=== PATIENT | female | born 1985 | race Caucasian/White ===

== ENCOUNTER 2020-08-10 21:22 | Emergency (ER) | payer SELFPAY ==
--- NOTE | 2020-08-10 21:24 | XRR_ITS ---
PROCEDURE INFORMATION: Exam: XR Right Hip Exam date and time: 08/10/2020 9:33 PM Age: 34 years old Clinical indication: Injury or trauma; Fall; Blunt trauma (contusions or hematomas); Right; Hip; Injury details: One month ago; Additional info: Fall from horse TECHNIQUE: Imaging protocol: XR Right hip. Views: 1 view hip with pelvis when performed. Total images: 2 COMPARISON: No relevant prior studies available. FINDINGS: Bones/joints: Unremarkable. No acute fracture. Soft tissues: Unremarkable. XR/XR hip RT 2-3V wo/w pel* [id number] IMPRESSION: No acute findings.
[2020-08-10 21:31] VITALS: BP 146/80; PULSE 80; RESP 17; TEMP 36.7; O2SAT 100; BMI 29.8
[2020-08-10 23:13] VITALS: BP 132/82; PULSE 79; RESP 18; O2SAT 97
[2020-08-10] MEDS: predniSONE 20 mg Tablet 40 MG PO (23:17)
[2020-08-10] MEDS: cyclobenzaprine 10 mg Tablet PO (23:17)
--- NOTE | 2020-08-10 23:22 | W.ED.EXTPRO ---
HPI - Extremity Problem General: Chief complaint: Extremity Injury, Lower Stated complaint: R HIP PAIN/THROWN FROM HORSE X 1MO,NOT IMPROVING Time Seen by Provider: 08/10/20 21:24 Source: patient Mode of arrival: ambulatory Limitations: no limitations History of Present Illness: HPI Narrative: 34 yo female patient presents to ER states she fell off horse about a month ago and hs had hip pain ever since. Pt states last few weeks she has developed this burning pain down the back of her leg. Pt denies any lumbar pain pt denies any abd pain, deneis fever, denies loss of bowel or bladder denies any history of IV drug use. Pt denies any urinary symptoms Associated symptoms: Deny chest pain, fever(s) or rash Review of Systems Const: Denies: fever(s), chills, body aches, change in appetite, change in weight, fatigue, malaise or diaphoresis Eyes: Denies: change in vision, blurry vision, blind spots, photophobia, eye discomfort, eye discharge, eye redness, floaters or seeing flashes ENMT: Denies: throat pain, uvular edema, enlarged tonsils, odynophagia, hoarseness, mouth pain, swelling of lips/tongue, oral sores, bleeding gums, dental pain, dry mouth, ear or mastoid pain, ear discharge, change in hearing, tinnitus, disequilibrium, nasal discharge, nasal congestion, post nasal drip or sinus pain Card: Denies: chest pain, palpitations, irregular heart rhythm, edema, swelling of feet/ankles, lightheadedness, syncope, pre-syncope, dyspnea on exertion, orthopnea, leg pain with exertion or acrocyanosis Resp: Denies: dyspnea, productive cough, non-productive cough, wheezing, stridor, pain on inspiration, change in phlegm color, hemoptysis or chest congestion GI: Denies: abdominal pain, nausea, vomiting, hematemesis, dysphagia, diarrhea, constipation, GI cramping, change in bowel habits or rectal pain : Denies: flank pain, difficulty voiding, dysuria, urinary frequency, urinary urgency, urinary hesitancy or hematuria Musc: Reports: joint pain; Denies: neck pain, back pain, extremity pain, extremity swelling, joint swelling, joint redness, joint warmth or deformity Skin/Breast: Denies: rash, pruritus, erythema, sores, new lesions, changes in skin color or dry skin Neuro: Denies: headache(s), numbness in extremities, weakness in extremities, sensory changes, lack of coordination, difficulty walking, frequent falls, dizziness, vertigo, confusion, behavioral changes, Slurred speech present, difficulty communicating thoughts or seizure-like activity Psych: Denies: anxiety, depression, suicidal ideation or homicidal ideation Endo: Denies: polyuria, polydipsia, tired all the time, cold intolerance, excessive sweating, flushing, hot flashes or heat intolerance Boris/Lymph: Denies: easy bruising, easy bleeding, petechiae, purpura, enlarged lymph nodes or tender lymph nodes All/Imm: Denies: urticaria, throat swelling, tongue swelling, facial swelling, acute wheezing or itchy eyes Physical Exam HENMT: THROAT: no uvular edema Neck/C-Spine: COMMON NORMALS: no JVD Chest: COMMONS NORMALS: normal inspection of the chest, normal palpation of entire chest wall, normal inspection of the breasts and normal palpation of the breasts Breast/axilla inspection: Yes normal inspection of the breasts BREAST/AXILLA PALPATION: Yes normal palpation of the breasts Resp: COMMON NORMALS: normal respiratory effort, No retractions, No use of accessory muscles, clear to auscultation bilaterally and percussion normal AUSCULTATION: clear to auscultation bilaterally PERCUSSION: percussion normal Cardio: COMMON NORMALS: no JVD, regular rate, regular rhythm, S1 normal heart sound present, S2 normal heart sound present, No gallops present (Cardio), No clicks present (Cardio), No murmurs present (Cardio), No rub (Cardio) and Peripheral pulses 2+ throughout RATE: regular rate RHYTHM: regular rhythm HEART SOUNDS: S1 normal heart sound present and S2 normal heart sound present PERIPHERAL PULSES: Peripheral pulses 2+ throughout GI: COMMON NORMALS: Normal to inspection, nondistended, normoactive bowel sounds present, Soft to palpation, non-tender, No hepatosplenomegaly present, no masses and no bruits PALPATION: Yes Soft to palpation and Yes No hepatosplenomegaly present : COMMON NORMALS: Yes no CVA tenderness BLADDER/KIDNEY EXAM: Yes no CVA tenderness Back/Pelvis: COMMON NORMALS: no CVA tenderness, thoracic and lumbar spine normal to inspection, no thoracic nor lumbar tenderness, thoraco-lumbar ROM normal and straight leg raise negative bilaterally THORACIC SPINE/UPPER BACK: Yes normal to inspection and Yes thoracic ROM normal LUMBAR SPINE/LOWER BACK: Yes normal to inspection and Yes paraspinal muscle tenderness PELVIS: Yes buttocks normal, Yes no pain with anterior-posterior compression, Yes no pain with lateral compression, No tenderness over symphysis pubis, Yes sciatic notch tenderness and No iliac crest elevation SACROILIAC JOINTS: Yes SI joints normal Course Vital Signs: Vital signs: Vital Signs Temperature 98.1 F 08/10/20 21:31 Pulse Rate 79 08/10/20 23:13 Respiratory Rate 18 08/10/20 23:13 Blood Pressure 132/82 08/10/20 23:13 Pulse Oximetry 97 08/10/20 23:13 MDM - Extremity (Nontraumatic) MDM Narrative: Medical decision making narrative: Pt is well appearing non toxic and in no acute distress. 34 yo female patient presents to ER states she fell off horse about a month ago and hs had hip pain ever since. Pt states last few weeks she has developed this burning pain down the back of her leg. Pt denies any lumbar pain pt denies any abd pain, deneis fever, denies loss of bowel or bladder denies any history of IV drug use. Pt denies any urinary symptoms Pt hip/pelvis xray are negative for any acute findings. Pt is NVI distally. Pt physical exam findings are c/w scitica. I will start patient on short course of steroids and muscle relaxers. I reviewed home care and precautions with patient. patietn to followup with PCP in 1-2 days Discharge Plan Discharge Patient Disposition: Home Clinical Impression: Sciatica Qualifiers: Laterality: right Qualified Code(s): M54.31 - Sciatica, right side Condition: Stable Prescriptions: New prednisone 20 mg tablet 20 mg PO BID 5 Days Qty: 10 RF: 0 cyclobenzaprine 10 mg tablet 10 mg PO TID PRN (Reason: muscle spasm) Qty: 30 RF: 0 Discharge Orders: Discharge ED (Routine); Ordered 08/10/20 Ordered By: Yudy Moya Discharge Diet: Advance as tolerated Discharge Activity: Increase activity as tolerated Patient Instructions: Opioid Safety Activity Restrictions/Additional Instructions: Please avoid sitting for prolong periods of time Please take meds as directed Please do not drive or operate heavy machinery while taking Flexeril Please perform stretching exercises as discussed and demonstrated Please return to ER with any loss of bowel or bladder, fever, or any other concerning symptoms Coding Level of Care Code ED Cleaning Validation Consultant for Randolph Gay
== END 2020-08-10 23:58 | disposition home or self-care (01) ==
PROVIDERS: Emergency Provider Registered Nurse
DX: M54.31 Sciatica, right side (principal)
CPT/HCPCS: 73502; 99283; J7512

== ENCOUNTER 2022-12-18 07:37 | Day surgery (SDC) | payer BC, MEDICAID, SELFPAY ==
[2022-12-15 16:17] VITALS: BMI 31.6
[2022-12-18] VITALS (7 sets, daily range): BP systolic 115–135; BP diastolic 66–90; PULSE 70–90; RESP 13–18; TEMP 36.2–37; O2SAT 96–99
[2022-12-18] MEDS: sodium chloride 0.9% 1,000 ML 30 ML IV (08:06)
[2022-12-18] MEDS: ketorolac 30 mg/mL INJ IVP (08:07)
[2022-12-18] MEDS: acetaminophen 1,000 MG/100 ML PIGGYBACK 400 MG IV (08:08)
[2022-12-18 09:38] LABS: OR HCG Qualitative Urine Negative (Negative)
--- NOTE | 2022-12-18 09:47 | W.PM.OPSUD ---
Surgery/Procedure H&P Update DATE OF PROCEDURE: December 18, 2022 DATE H&P PERFORMED: 11/28/22 H&P UPDATE INFORMATION: I have reviewed H&P completed within last 30 days, I have examined patient prior to procedure and No changes to prior documentation PREOP DIAGNOSIS: Left Carpal Tunnel syndrome PRIMARY INDICATION FOR PROCEDURE: Left carpal tunnel syndrome PLANNED PROCEDURE: Operation Date: 12/18/22 09:20 Proposed Procedures p ]left carpal tunnel release 09136,G56.02(Left) - Sage Galvez DO
[2022-12-18] MEDS: ceFAZolin 2,000 MG in sodium chloride 0.9% (plus) 50 ML 100 MG IV (10:06)
[2022-12-18] MEDS: lidocaine-epi 1% 20 mL INJ INJECTION (10:40)
[2022-12-18] MEDS: ROPivacaine 0.5% SDV 30 mL 150 MG INJECTION (10:40)
--- NOTE | 2022-12-18 10:57 | PM.OP ---
Operative Report Date of procedure: December 18, 2022 Surgeon: Sage Galvez DO Superintendent Ammunition Storage: TERRA Tapia was utilized in this case for protection of neurovascular structures skin retraction as well as assistance with wound closure Procedure: Preoperative diagnosis left carpal tunnel syndrome Post-op diagnosis: Same Procedure done: 1.?Left carpal tunnel release Surgeon: Sage Galvez DO Anesthesia: MAC (Local) Estimated blood?loss: 1 mL Tourniquet time 8 minutes IV fluids: See anesthesia record Complications: None Findings: See operative report narrative Condition: stable Disposition: same day Brief History: Patient is a pleasant 37 year-old female?with?left carpal tunnel syndrome.? Patient has been worked up in the outpatient setting findings and physical examination consistent with this.? Patient nerve?conduction studies consistent with carpal tunnel syndrome.? We detailed?out?patient's risk benefits complication alternatives with surgical and?nonsurgical treatment options. Through shared decision making, patient?agrees to proceed with surgical intervention of the?left carpal tunnel release .? Patient understands and agrees with current plan.? All questions answered.? Patient elects to proceed with surgical intervention with carpal tunnel release. Procedure: Patient seen and evaluated in the preoperative holding area.? Consent was reviewed and signed with patient.? Correct extremity was marked.? Patient was seen evaluated by the anesthesia department once cleared for surgery was brought back to the operative suite.? Patient was kept on [facility] in supine position all bony prominences were well-padded patient properly secured to the bed.??Left upper extremity was then placed onto an armboard.? A nonsterile tourniquet was applied to the?left upper arm.? Patient underwent anesthesia per the anesthesia department.? Patient's?left upper extremity was then prepped and draped in standard orthopedic fashion.? Final timeout performed.? Patient received appropriate preoperative antibiotics. Under sterile aseptic technique patient received?local anesthesia over the preplanned carpal tunnel incision site. Esmarch was used to exsanguinate the?left upper extremity and tourniquet was insufflated to 250 mmHg. A standard mini open?left carpal tunnel incision was made.? Starting distally at Olmos's cardinal?line in?line with the fourth ray extending proximally distal to the wrist crease centered over the carpal tunnel.? Sharp scalpel incision was made through skin and subcutaneous tissue.? Self-retaining retractor was placed and the palmar fascia was identified.? This was then split?longitudinally and direct visualization of the transverse carpal?ligament was then made.? I then utilizing scalpel feathered through the transverse carpal?ligament until I entered the floor of the transverse carpal tunnel?ligament into the carpal tunnel.? Next I switched to dissection scissors and completed my release of the transverse carpal?ligament distally with care to protect the recurrent motor branch.? I completely released into the palmar fat and until no entrapment was noted distally.? Care was made to protect the superficial palmar arch during my distal dissection.? Next I utilized a nasal speculum to mobilize and spread the subcutaneous fat off of the transverse carpal ligament proximally. I then placed a [place] underneath the transverse carpal tunnel?ligament to protect the contents of the carpal tunnel and subsequently utilizing dissection scissors under?loupe magnification completely released the transverse carpal?ligament proximally into the median antebrachial fascia.? Care was made to protect the palmar cutaneous branch by keeping my scissors curved ulnarly.? Once completely released, I then placed my [place] and had appropriate decompression of the carpal tunnel proximally as well as distally.? I then inspected the contents of the carpal tunnel which showed an hourglass shape of the median nerve showing its compression.? No masses were noted.? Tendons appeared healthy.? Wound was then thoroughly irrigated.? Tourniquet deflated.? Hemostasis satisfactory with bipolar electrocautery.? I then closed the incision with interrupted nylon stitches.? Xeroform 4 x 4's and a bulky soft dressing was applied to the?left upper extremity.? Patient was then awakened from anesthesia and taken to PACU in stable condition.? Patient tolerated procedure without complications. Disposition: Patient taken to PACU in stable condition recovering well.? Dressing clean dry and intact.? Patient will receive appropriate discharge instructions as well as pain medication postoperatively.? Patient to follow-up with me in the office in 2 weeks.? They understand they may be weightbearing as tolerated to the?left hand.? Patient should keep incision clean dry and intact.? Patient understands if any questions or concerns may contact the office.
--- NOTE | 2022-12-18 11:06 | W.PM.BPON ---
Date of procedure: [December 18, 2022] Surgeon name: [Dr. Lenny HALL] Election Assistant(s) name(s): [Alejandro Galvez physician real estate executive assistant] Procedure(s) performed: [Left carpal tunnel release] Description of findings: [Left carpal tunnel syndrome] Estimated blood loss: [5ml] Specimen(s) removed: [none] Post-operative diagnosis: [Left Carpal tunnel syndrome]
--- NOTE | 2022-12-18 11:08 | P.PCN_ITS ---
PACU note Narrative: Patient is a 37-year-old female that just underwent left carpal tunnel release. Patient transferred to PACU in stable condition. Pain is well controlled. Dressing on hand is dry and in place. Patient's fingers are warm and well- perfused. Patient can wiggle fingers. normal cap refill under 2 seconds. Patient has normal elbow range of motion. Unable to assess sensation hand due to residual localized anesthetic. Exam: awake Disposition: discharged
--- NOTE | 2022-12-18 17:23 | ANE.PACU2 ---
Inpatient post-anesthesia follow up: Airway intact: Yes Vital signs: Temperature 97.1 F Pulse Rate 71 Respiratory Rate 16 Blood Pressure 132/78 Pulse Oximetry 99 Oxygen Delivery Me thod Room Air Oxygen Flow Rate 6 Fraction of Inspir ed Oxygen Hydration adequate: Yes Nausea and vomiting: No Pain level: 1 Mental status: Baseline
== END 2022-12-18 12:00 | disposition home or self-care (01) ==
PROVIDERS: Anesthesiology; PCP Nurse Practitioner; Visit Provider Student in an Organized Health Care Education/Training Program
PROC: (CPT 64721; principal; 2022-12-18 09:10)
DX: G56.02 Carpal tunnel syndrome, left upper limb (principal)
CPT/HCPCS: 64721; 81025; 84703; J0131; J0690; J1885; J2250; J2704; J2795; J3010; J7030

== ENCOUNTER 2023-02-01 05:44 | Day surgery (SDC) | payer BC, MEDICAID, SELFPAY ==
[2023-02-01] VITALS (7 sets, daily range): BP systolic 117–176; BP diastolic 69–84; PULSE 73–86; RESP 16–18; TEMP 36.1–36.3; O2SAT 95–98; BMI 31.7
[2023-02-01] MEDS: sodium chloride 0.9% 1,000 ML 30 ML IV (06:21)
[2023-02-01] MEDS: ketorolac 30 mg/mL INJ IVP (06:48)
[2023-02-01] MEDS: acetaminophen 1,000 MG/100 ML PIGGYBACK 400 MG IV (06:49)
--- NOTE | 2023-02-01 07:08 | ANES.PREANE2 ---
Pre-Anesthetic Assessment Height/Weight: Height 1.75 m Weight 97.522 kg Temp Pulse Resp BP Pulse Ox O2 Del Method 97 F L 76 18 121/82 98 Room Air 02/01/23 06:06 02/01/23 06:06 02/01/23 06:06 02/01/23 06:06 02/01/23 06:06 02/01/23 06:23 Preop Diagnosis: Right Carpal Tunnel syndrome Operation Date: 02/01/23 07:40 Proposed Procedures p Carpal Tunnel Release(Right) - Sage Galvez DO Familial anesthetic complications: None Was Beta Narda taken within 24 hours: N/A Was Clonidine taken within 24 hours: N/A Last intake: Intake Last Liquid Date 01/31/23 Last Liquid Time 20:30 Last Solid Date 01/31/23 Last Solid Time 17:30 Social Tobacco and No alcohol Exam alert, oriented x 3, clear to auscultation bilaterally and regular rate & rhythm Airway Mallampati: Class II Dentition: false ( and they're glued in ) Anesthetic Plan ASA status: 1 Anesthesia: MAC Risk of > 500 ml blood loss (7ml/kg in children): No Medications/Allergies Allergies Allergy/AdvReac Type Severity Reaction Status Date / Time No Known Allergies Allergy Verified 01/31/23 11:20 Current Medications Generic Name Dose Route Start Last Admin Trade Name Freq PRN Reason Stop Dose Admin Sodium Chloride 1,000 mls @ 30 mls/hr 02/01/23 06:00 02/01/23 06:21 Sodium Chloride 0.9% IV 02/02/23 05:59 30 mls/hr .Q24H RADAMES Administration PFS Anesthesia Social History Smoking and tobacco/nicotine status: current every day tobacco/nicotine user Substance/Drug Use: never Data Anesthesia Cardiac Studies: No Data to Display
--- NOTE | 2023-02-01 07:51 | W.PM.OPSUD ---
Surgery/Procedure H&P Update DATE OF PROCEDURE: February 01, 2023 DATE H&P PERFORMED: 01/04/23 H&P UPDATE INFORMATION: I have reviewed H&P completed within last 30 days, I have examined patient prior to procedure and No changes to prior documentation PREOP DIAGNOSIS: Right Carpal Tunnel syndrome PRIMARY INDICATION FOR PROCEDURE: Right carpal tunnel syndrome PLANNED PROCEDURE: Operation Date: 02/01/23 07:40 Proposed Procedures p Carpal Tunnel Release(Right) - Sage Galvez DO
[2023-02-01 08:13] LABS: OR HCG Qualitative Urine Negative (Negative)
[2023-02-01] MEDS: ceFAZolin 2,000 MG in sodium chloride 0.9% (plus) 50 ML 100 MG IV (08:14)
[2023-02-01] MEDS: lidocaine-epi 1% PF 1:200,000 30 mL SDV 5 ML INJECTION (08:42)
[2023-02-01] MEDS: ROPivacaine 0.5% SDV 30 mL 25 MG INJECTION (08:42)
--- NOTE | 2023-02-01 08:49 | P.BOP_ITS ---
Date of Procedure: 02/01/2023 Surgeon: Sage Galvez DO Chief Passenger Ship Steward/Stewardess(s): JUAN Frankel Procedure(s) performed: Right carpal tunnel release Findings of the procedure(s): Right carpal tunnel syndrome procedure went as planned for right carpal tunnel release Estimated blood loss: 2 mL Specimen(s) removed: None Post-operative diagnosis: Right carpal tunnel syndrome
--- NOTE | 2023-02-01 08:50 | PM.OP ---
Operative Report Date of procedure: February 01, 2023 Pre-op diagnosis: Right carpal tunnel syndrome Post-op diagnosis: Same Surgeon: Sage Galvez DO Procedure: Post-op diagnosis: Same Procedure done: 1. Right carpal tunnel release Surgeon: Sage Galvez DO Anesthesia: MAC (Local) Estimated blood loss: [2mL Tourniquet time [8]minutes IV fluids: See anesthesia record Complications: None Findings: See operative report narrative Condition: stable Disposition: same day Brief History: Patient is a pleasant [37? ]year-old [female] with right carpal tunnel syndrome.? Patient has been worked up in the outpatient setting findings and physical examination consistent with this.? Patient nerve conduction studies consistent with carpal tunnel syndrome.? We detailed out patient's risk benefits complication alternatives with surgical and nonsurgical treatment options. Through shared decision making, patient agrees to proceed with surgical intervention of the left carpal tunnel release .? Patient understands and agrees with current plan.? All questions answered.? Patient elects to proceed with surgical intervention with carpal tunnel release. Procedure: Patient seen and evaluated in the preoperative holding area.? Consent was reviewed and signed with patient.? Correct extremity was marked.? Patient was seen evaluated by the anesthesia department once cleared for surgery was brought back to the operative suite.? Patient was kept on [facility] in supine position all bony prominences were well-padded patient properly secured to the bed.? Right upper extremity was then placed onto an armboard.? A nonsterile tourniquet was applied to the RIght upper arm.? Patient underwent anesthesia per the anesthesia department.? Patient's Right upper extremity was then prepped and draped in standard orthopedic fashion.? Final timeout performed.? Patient received appropriate preoperative antibiotics. Under sterile aseptic technique patient received local anesthesia over the preplanned carpal tunnel incision site. Esmarch was used to exsanguinate the Right upper extremity and tourniquet was insufflated to 250 mmHg. A standard mini open Right carpal tunnel incision was made.? Starting distally at Olmos's cardinal line in line with the fourth ray extending proximally distal to the wrist crease centered over the carpal tunnel.? Sharp scalpel incision was made through skin and subcutaneous tissue.? Self-retaining retractor was placed and the palmar fascia was identified.? This was then split longitudinally and direct visualization of the transverse carpal ligament was then made.? I then utilizing scalpel feathered through the transverse carpal ligament until I entered the floor of the transverse carpal tunnel ligament into the carpal tunnel.? Next I switched to dissection scissors and completed my release of the transverse carpal ligament distally with care to protect the recurrent motor branch.? I completely released into the palmar fat and until no entrapment was noted distally.? Care was made to protect the superficial palmar arch during my distal dissection.?? Next I utilized a nasal speculum placed on top of the transverse carpal ligament and utilize this to retract the subcutaneous fat and tissue and under direct loupe magnification was able to identify the transverse carpal ligament.? Next I then placed a [place] underneath the transverse carpal tunnel ligament to protect the contents of the carpal tunnel and subsequently utilizing dissection scissors under loupe magnification completely released the transverse carpal ligament proximally into the median antebrachial fascia.? Care was made to protect the palmar cutaneous branch by keeping my scissors curved ulnarly.? Once completely released, I then placed my [place] and had appropriate decompression of the carpal tunnel proximally as well as distally.? I then inspected the contents of the carpal tunnel which showed an hourglass shape of the median nerve showing its compression.? No masses were noted.? Tendons appeared healthy.? Wound was then thoroughly irrigated.? Tourniquet deflated.? Hemostasis satisfactory with bipolar electrocautery.? I then closed the incision with interrupted nylon stitches.? Xeroform 4 x 4's and a bulky soft dressing was applied.? Patient was then awakened from anesthesia and taken to PACU in stable condition.? Patient tolerated procedure without complications. Disposition: Patient taken to PACU in stable condition recovering well.? Dressing clean dry and intact.? Patient will receive appropriate discharge instructions as well as pain medication postoperatively.? Patient to follow-up with me in the office in 2 weeks.? They understand they may be weightbearing as tolerated to the right hand.? Patient should keep incision clean dry and intact.? Patient understands if any questions or concerns may contact the office.
[2023-02-01] MEDS: TRAMadol 50 mg Tablet PO (09:34)
--- NOTE | 2023-02-01 09:40 | ANE.PACU2 ---
Inpatient post-anesthesia follow up: Airway intact: Yes Vital signs: Temperature 97 F Pulse Rate 73 Respiratory Rate 18 Blood Pressure 117/70 Pulse Oximetry 98 Oxygen Delivery Me thod Room Air Oxygen Flow Rate Fraction of Inspir ed Oxygen Hydration adequate: Yes Nausea and vomiting: No Pain level: 1 Mental status: Baseline
== END 2023-02-01 09:41 | disposition home or self-care (01) ==
PROVIDERS: Anesthesiology; PCP Nurse Practitioner; Visit Provider Student in an Organized Health Care Education/Training Program
PROC: (CPT 64721; principal; 2023-02-01 07:40)
DX: G56.01 Carpal tunnel syndrome, right upper limb (principal); F17.210 Nicotine dependence, cigarettes, uncomplicated
CPT/HCPCS: 64721; 81025; 84703; J0131; J0690; J1885; J2250; J2704; J2795; J3010; J7030

== ENCOUNTER 2023-09-02 21:17 | Emergency (ER) | payer BC, MEDICAID, SELFPAY ==
[2023-09-02 21:21] VITALS: BP 151/98; PULSE 90; RESP 16; TEMP 36.6; O2SAT 97; BMI 34.9
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
--- NOTE | 2023-09-02 22:48 | ED_ITS ---
HPI - Extremity Problem General: Chief complaint: Extremity Injury, Upper Stated complaint: Rt Shoulder Injury Time Seen by Provider: 09/02/23 21:42 History of Present Illness: Patient was playing softball with her children tonight and accidentally got hit in the right upper arm with a bat. Patient has a linear manda to the humerus. Patient has muscle tightness to her trapezius. Patient moves extremity well. Review of Systems General: Reports: 10 or more systems reviewed and unremarkable except in HPI and below Musc: Reports: extremity pain PFSH ED PFSH: Social History Smoking and tobacco/nicotine status: current every day tobacco/nicotine user Substance/Drug Use: never Physical Exam Const: COMMON NORMALS: alert HENMT: COMMON NORMALS: normocephalic HEAD & SCALP: normocephalic THROAT: posterior oropharynx normal Neck/C-Spine: COMMON NORMALS: full ROM Chest: COMMONS NORMALS: normal inspection of the chest Resp: COMMON NORMALS: normal respiratory effort Cardio: COMMON NORMALS: regular rate RATE: regular rate GI: COMMON NORMALS: Soft to palpation and non-tender PALPATION: Yes Soft to palpation Back/Pelvis: COMMON NORMALS: thoracic and lumbar spine normal to inspection Extremity: RIGHT UPPER EXTREMITY: Yes upper arm (Linear manda with some ecchymosis. Distal pulses and sensation are intact. ) Right upper arm: Yes inspection, Yes palpation and Yes neurovascular exam Neuro: SENSORIUM/ORIENTATION: Yes alert Skin: COMMON NORMALS: turgor normal GENERAL SKIN EXAM: turgor normal Course Vital Signs: Vital signs: Vital Signs Temperature 97.8 F 09/02/23 21:21 Pulse Rate 80 09/02/23 23:31 Respiratory Rate 17 09/02/23 23:31 Blood Pressure 142/81 09/02/23 23:31 Pulse Oximetry 99 09/02/23 23:31 Oxygen Delivery Me thod Room Air 09/02/23 21:21 MDM - Extremity (Nontraumatic) Medical Decision Making 37-year-old female comes in today for injury to the right upper arm. On exam geni salguero has a linear markings about 6 x 3 cm circular. This is to the right upper arm. Patient has normal range of motion of the arm. Distal pulses and sensation are intact. Respirations are even. Lungs clear to auscultation. Vital signs are normal. Differential diagnosis includes fracture, dislocation, contusion, sprain. X-ray of the shoulder and humerus were negative for fracture. Reviewed exam with patient with recommendations for treatment and follow-up. Patient reported understanding. Lab Data Radiology Impressions Humerus X-Ray 09/02/23 21:25 IMPRESSION: No acute findings. Shoulder X-Ray 09/02/23 21:25 IMPRESSION: No acute findings. All radiology interpretation(s) finalized by discharge Discharge Plan Discharge Patient Disposition: Home Clinical Impression: Contusion of arm, right Qualifiers: Encounter type: initial encounter Qualified Code(s): S40.021A - Contusion of right upper arm, initial encounter Condition: Stable Prescriptions: New hydrocodone-acetaminophen 5-325 mg tablet 1 tab PO Q6H PRN (Reason: pain) Qty: 5 0RF Rx Instructions: dx: acute arm pain Discontinued tramadol 50 mg tablet 50 mg PO Q6H PRN (Reason: pain) Qty: 20 0RF Discharge Orders: Discharge ED (Routine); Ordered 09/02/23 Ordered By: Gee Dean Referrals: Iain Osullivan FNP [Primary Care Provider] - Discharge Diet: Usual diet Discharge Activity: Increase activity as tolerated Patient Instructions: Contusion in Adults (ED) Activity Restrictions/Additional Instructions: Activity as tolerated. Use ice packs to area for pain and discomfort. Gentle range of motion. 3 plenty of water with medications. Follow-up with primary care for further instructions. Coding Level of Care Code ED Uniform Attendant for Randolph Gay
[2023-09-02] MEDS: HYDROcodone-acetaminophen 5-325 mg Tablet 1 TAB PO (23:25)
[2023-09-02 23:31] VITALS: BP 142/81; PULSE 80; RESP 17; O2SAT 99
== END 2023-09-02 23:30 | disposition home or self-care (01) ==
PROVIDERS: Emergency Provider Nurse Practitioner Family; PCP Nurse Practitioner
DX: S40.021A Contusion of right upper arm, initial encounter (principal); Z72.0 Tobacco use; W21.11XA Struck by baseball bat, initial encounter; Y93.64 Activity, baseball
CPT/HCPCS: 73030; 73060; 99283

== ENCOUNTER → 2025-01-06 10:16 | Outpatient (BNVA) | payer BC, SELFPAY | PROVIDERS: PCP Nurse Practitioner | DX: M79.642 Pain in left hand (principal) | CPT/HCPCS: 73130 ==